=== PATIENT | female | born 1990 | race Hispanic/Latino ===

== ENCOUNTER 2021-08-18 11:21 | Emergency (ER) | payer OTHER ==
[~2021-08-18] VITALS: Ht 165.1 cm; Wt 81.6 kg
[2021-08-18] MEDS ORDERED: HYDROCODONE/APAP 7.5MG-325MG 1 EA TAB PO PRN (11:45)
[2021-08-18] MEDS ORDERED: LIDOCAINE HCL 2% LOCAL 20 ML VIAL INJ ONE (13:00)
[2021-08-18] MEDS ORDERED: LIDOCAINE HCL 2% LOCAL 20 ML VIAL ONE (13:07)
[2021-08-18] MEDS ORDERED: KEFLEX125 MG/5 M PO (14:12)
[2021-08-18] MEDS ORDERED: HYDROCODON-ACE1 EA12 PO (14:12)
[2021-08-18] MEDS ORDERED: NEOSTIGMINE 1 MG/ML 10ML VIAL ONE (14:13)
== END 2021-08-18 14:51 | disposition home or self-care (01) ==
LOC: EDSEX 11:21 → ER 11:38
DX: S81.011A Laceration without foreign body, right knee, initial encounter (principal); W18.39XA Other fall on same level, initial encounter; Y93.01 Activity, walking, marching and hiking; Y92.008 Other place in unspecified non-institutional (private) residence as the place of occurrence of the external cause
CPT/HCPCS: 12002; 73562; 99284; J2001; J2710